=== PATIENT | female | born 1970 | race Caucasian/White ===

== ENCOUNTER 2019-05-09 05:40 | Inpatient (IN) | payer OTHER, SELFPAY ==
[2019-05-09] VITALS (11 sets, daily range): BP systolic 125–149; BP diastolic 72–96; PULSE 93–120; RESP 14–27; TEMP 36.9–38.1; O2SAT 95–100; BMI 40.0
--- NOTE | 2019-05-09 05:47 | ED_ITS ---
HPI - Ear Problem General Chief complaint: Skin/Abscess/Foreign Body Stated complaint: Swelling, redness right ear pain Time Seen by Provider: 05/09/19 05:46 Source: patient Mode of arrival: Ambulatory Limitations: no limitations History of Present Illness HPI Narrative: 49-year-old female former smoker presents with a chief complaint of a rapid onset red, painful and swollen right ear. She denies any injury. Sh e denies any history of immune compromise, diabetes a recent oral steroids. She states that she started having some pain and swelling of her ear after it felt hot yesterday. Over the course of the night she began to feel ill and complains of fever, shaking chills and nausea. Patient had a similar scenario 2 years ago which required admission at our review and subsequent administration of antibi otics over the course of 3 weeks through a PICC line. Her max temp at home was 101.5 MD Complaint: ear pain Location: right ear Duration: constant Severity: severe Relieving factors: nothing Exacerbating factors: position of head and palpation Discharge from ear: no Treatment prior to arrival: none Related Data Home Medications Medication Instructions Recorded Confirmed Probiotic 1 cap PO DAILY 05/09/19 05/09/19 cholecalciferol (vitamin D3) 5,000 unit PO DAILY 05/09/19 05/09/19 [Vitamin D3] dextroamphetamine-amphetamine 10 mg PO BID 05/09/19 05/09/19 estradiol [Estrace] 0 g VAGINAL DIRECTED 05/09/19 05/09/19 fluoxetine 10 mg PO DAILY 05/09/19 05/09/19 levothyroxine [Tirosint] 150 mcg PO DAILY 05/09/19 05/09/19 montelukast 10 mg PO QPM 05/09/19 05/09/19 triamcinolone acetonide 1 applic TOPICAL DIRECTED 05/09/19 05/09/19 Allergies Allergy/AdvReac Type Severity Reaction Status Date / Time lactose Allergy Verified 05/09/19 06:43 meloxicam [From Mobic] AdvReac Verified 05/09/19 06:43 Review of Systems Constitutional Constitutional: Reports chills, Denies fatigue, Reports fever(s), Denies frequent falls, Denies lethargy and Denies weakness Eyes Eyes: Denies change in vision, Denies eye discharge, Denies irritation and Denies loss of vision ENT Ears, Nose, Mouth, and Throat: Denies change in voice, Denies dizziness, Reports otalgia, Reports facial pain, Denies neck pain, Denies sore throat and Denies throat swelling Cardiovascular Cardiovascular: Denies chest pain, Denies irregular heart rhythm, Denies lightheadedness, Denies palpitations, Denies dyspnea, Denies dyspnea on exertion and Denies orthopnea Respiratory Respiratory: Denies cough, Denies dyspnea, Denies dyspnea on exertion and Denies wheezing Gastrointestinal Gastrointestinal: Denies abdominal pain, Denies change in bowel habits, Denies diarrhea, Denies nausea and Denies vomiting Genitourinary Genitourinary: Denies hematuria, Denies flank pain, Denies urinary incontinence and Denies urinary urgency Musculoskeletal Musculoskeletal: Denies back pain, Denies muscle weakness, Denies neck pain, Denies numbness and Denies tingling Integumentary/Breasts Skin/Breast: Denies pruritus, Denies erythema, Denies rash and Denies wounds Neurologic Neurologic: Denies behavioral changes, Denies confusion, Denies dizziness, Denies frequent falls, Denies loss of vision, Denies numbness, Denies tingling and Denies weakness Psychiatric Psychiatric: Denies anxiety, Denies behavioral changes, Denies confusion, Denies depression, Denies homicidal ideation and Denies suicidal ideation Endocrine Endocrine: Denies fatigue, Denies flushing and Denies palpitations Hematologic/Lymphatic Hematologic/Lymphatic: Denies easy bruising Allergic/Immunologic Allergic/Immunologic: Denies urticaria, Denies throat swelling and Denies wheezing Patient History Medical History (Updated 05/09/19 @ 13:30 by Dillon Shell MD) ADHD (Acute) Anxiety (Acute) Dairy product intolerance (Acute) Environmental allergies (Acute) Gluten intolerance (Acute) H/O Bharati thyroiditis (Acute) Hypothyroidism (acquired) (Acute) Family History (Updated 05/09/19 @ 13:22 by Dillon Shell MD) Father Lymphoma Mother Diabetes mellitus Hypertension CVA (cerebral vascular accident) Social History household members: spouse Smoking Status: Former smoker alcohol intake: never Family History (Updated 05/09/19 @ 13:22 by Dillon Shell MD) Father Lymphoma Mother Diabetes mellitus Hypertension CVA (cerebral vascular accident) Social History household members: spouse Smoking Status: Former smoker alcohol intake: never Exam Narrative Exam Narrative: GENERAL: [49] year old patient appears stated age. Well- nourished, well-developed patient, in mild distress. Ill appearing HEAD: Atraumatic. Normocephalic. EYES: Pupils equal round and reactive. Extraocular motions intact. No scleral icterus. No injection or drainage. ENT: Nose without bleeding, purulent drainage. Throat without erythema, tonsillar hypertrophy or exudate. Airway patent. R external ear notably swollen, red tender with associated lymphadenopathy. EAC appears clear without drainage. TM celar NECK: Trachea midline. Non tender CARDIOVASCULAR: Tachycardic rate and regular rhythm without murmurs, gallops, or rubs. RESPIRATORY: Clear to auscultation. Breath sounds equal bilaterally. No wheezes, rales, or rhonchi. GASTROINTESTINAL: Abdomen soft, non-tender, nondistended. EXTREMITIES: No edema or joint tenderness. BACK: Nontender without deformity or crepitance. No flank tenderness. NEURO: AOx3. SKIN: No rash or erythema of visible areas Initial Vital Signs Initial Vital Signs: Vital Signs Temperature 99.1 F 05/09/19 05:49 Pulse Rate 120 H 05/09/19 05:49 Respiratory Rate 19 05/09/19 05:49 Blood Pressure 149/96 H 05/09/19 05:49 Pulse Oximetry 97 05/09/19 05:49 Course Orders Ordered: Hydrocodone Bitart/Acetaminophen ([place] 5/325) 2 tab PO Q4HR PRN PRN Reason: Pain, Severe (7-10) Last Admin: 05/09/19 16:27 Dose: 2 tab Documented by: Admin: 05/09/19 11:48 Dose: 2 tab Documented by: MAULIK Docusate Sodium (Colace) 100 mg PO DAILY SALLY Enoxaparin Sodium (Lovenox) 40 mg SUBCUT BID SALLY Cefepime HCl 1 gm/ Sodium (Chloride) 100 mls @ 200 mls/hr IV Q12H SALLY Last Infusion: 05/09/19 14:22 Dose: 0 mls/hr Documented by: Admin: 05/09/19 13:35 Dose: 200 mls/hr Documented by: MAULIK Vancomycin HCl 1,250 mg/ (Sodium Chloride) 250 mls @ 250 mls/hr IV Q8H [facility] Last Admin: 05/09/19 14:22 Dose: 250 mls/hr Documented by: MAULIK Ketorolac Tromethamine (Toradol) 15 mg IV Q6HR [facility] Stop: 05/11/19 11:28 Last Admin: 05/09/19 18:07 Dose: 15 mg Documented by: Admin: 05/09/19 12:36 Dose: 15 mg Documented by: MAULIK Morphine Sulfate (Morphine) 2 mg IV Q4HR PRN PRN Reason: Pain, Moderate (4-6) Vancomycin HCl (Vancomycin Trough) 1 request MISC NOW ONE Stop: 05/10/19 06:01 Discontinued Medications Sodium Chloride (Normal Saline 0.9%) 1,000 mls @ 1,000 mls/hr IV BOLUS ONE Stop: 05/09/19 06:51 Last Infusion: 05/09/19 07:14 Dose: 0 mls/hr Documented by: Admin: 05/09/19 06:21 Dose: 1,000 mls/hr Documented by: JUWAN Sodium Chloride (Normal Saline 0.9%) 1,000 mls @ 1,000 mls/hr IV BOLUS ONE Stop: 05/09/19 07:10 Last Admin: 05/09/19 07:14 Dose: Not Given Documented by: JUWAN Vancomycin HCl/Dextrose (Vancomycin) 1,500 mg in 300 mls @ 200 mls/hr IV NOW ONE Stop: 05/09/19 07:42 Last Infusion: 05/09/19 08:17 Dose: 200 mls/hr Documented by: Admin: 05/09/19 06:32 Dose: 200 mls/hr Documented by: JUWAN Levofloxacin (Levaquin) 500 mg in 100 mls @ 100 mls/hr IV NOW ONE Stop: 05/09/19 07:18 Last Infusion: 05/09/19 07:32 Dose: 100 mls/hr Documented by: Admin: 05/09/19 06:32 Dose: 100 mls/hr Documented by: JUWAN Ketorolac Tromethamine (Toradol) 15 mg IV NOW ONE Stop: 05/09/19 07:17 Last Admin: 05/09/19 07:30 Dose: 15 mg Documented by: WM Vancomycin HCl (Vancomycin Per Pharmacy) 1 [place] [facility] [place] Stop: 05/09/19 11:29 Last Admin: 05/09/19 15:22 Dose: Not Given Documented by: JAYLENFARL Consultations Consultation #1: discussion with ENT. Admission appropriate, vanco/levaquin. Will relay info to day ENT Consultation #2: call to hospitalist, she will relay findings to day hospitalist Vital Signs Vital signs: Vital Signs - 8 hr 05/09/19 05:49 05/09/19 06:51 Temperature 99.1 F 98.6 F Pulse Rate 120 H 103 H Respiratory Rate 19 27 H Blood Pressure 149/96 H Blood Pressure [Right Arm] 133/79 Pulse Oximetry 97 97 Medical Decision Making Lab Data Result diagrams: 05/09/19 06:05 05/09/19 06:05 Labs: Lab Results 05/09/19 05/09/19 05/09/19 Range/Units 06:05 06:05 06:05 WBC 14.0 H (4.5-11.0) X10^3/uL RBC 4.28 (4.0-5.2) X10^6/uL Hgb 13.3 (12.0-16.0) g/dL Hct 39.4 (36-46) % MCV 91.9 (80-100) fL MCH 31.1 (26-34) PG MCHC 33.9 (30-36) % RDW 13.1 (11.6-14.8) % Plt Count 232 (150-400) X10^3/uL Neut % (Auto) 89.9 H (50-75) % Lymph % (Auto) 5.3 L (25-40) % [place] % (Auto) 4.5 (3-14) % Eos % (Auto) 0.2 L (2-4) % Baso % (Auto) 0.1 (0-2) % Neut # (Auto) 60405 H (4219-2894) /uL Lymph # (Auto) 700 L (3186-2258) /uL [place] # (Auto) 600 (0-900) /uL Eos # (Auto) 0 (0-450) /uL Baso # (Auto) 0 (0-100) /uL PT 11.4 (10.1-12.7) SECONDS INR 1.0 (0.9-1.3) APTT 28 (26.4-36.2) SECONDS Sodium (137-145) mmol/L Potassium (3.4-5.1) mmol/L Chloride (98-107) mmol/L Carbon Dioxide (22-32) mmol/L BUN (7-17) mg/dL Creatinine (0.52-1.04) mg/dL Estimated GFR (>60) mL/min BUN/Creatinine Ratio (6-22) Glucose (70-100) mg/dL Lactate (0.7-2.1) mmol/L Calcium (8.4-10.2) mg/dL Total Bilirubin (0.2-1.3) mg/dL AST (14-36) IU/L ALT (9-52) IU/L Alkaline Phosphatase (38-126) U/L Total Protein (6.3-8.2) g/dL Albumin (3.5-5.0) g/dL Globulin (1.7-4.1) g/dL Albumin/Globulin Ratio (1.0-2.8) Lipase (23-300) U/L Procalcitonin < 0.05 (<0.5) ng/mL Urine RBC (0-5/HPF) Urine WBC (0-5/HPF) Ur Squamous Epith Cells (0-5/HPF) Urine Bacteria (None) Ur Culture Indicated? 05/09/19 05/09/19 05/09/19 Range/Units 06:05 06:05 07:18 WBC (4.5-11.0) X10^3/uL RBC (4.0-5.2) X10^6/uL Hgb (12.0-16.0) g/dL Hct (36-46) % MCV (80-100) fL MCH (26-34) PG MCHC (30-36) % RDW (11.6-14.8) % Plt Count (150-400) X10^3/uL Neut % (Auto) (50-75) % Lymph % (Auto) (25-40) % [place] % (Auto) (3-14) % Eos % (Auto) (2-4) % Baso % (Auto) (0-2) % Neut # (Auto) (5474-0086) /uL Lymph # (Auto) (0908-4985) /uL [place] # (Auto) (0-900) /uL Eos # (Auto) (0-450) /uL Baso # (Auto) (0-100) /uL PT (10.1-12.7) SECONDS INR (0.9-1.3) APTT (26.4-36.2) SECONDS Sodium 137 (137-145) mmol/L Potassium 4.0 (3.4-5.1) mmol/L Chloride 104 (98-107) mmol/L Carbon Dioxide 23 (22-32) mmol/L BUN 16 (7-17) mg/dL Creatinine 0.60 (0.52-1.04) mg/dL Estimated GFR > 60.0 (>60) mL/min BUN/Creatinine Ratio 26.7 H (6-22) Glucose 121 H (70-100) mg/dL Lactate 1.8 (0.7-2.1) mmol/L Calcium 9.6 (8.4-10.2) mg/dL Total Bilirubin 1.2 (0.2-1.3) mg/dL AST 43 H (14-36) IU/L ALT 45 (9-52) IU/L Alkaline Phosphatase 56 (38-126) U/L Total Protein 7.9 (6.3-8.2) g/dL Albumin 4.4 (3.5-5.0) g/dL Globulin 3.5 (1.7-4.1) g/dL Albumin/Globulin Ratio 1.3 (1.0-2.8) Lipase 28 (23-300) U/L Procalcitonin (<0.5) ng/mL Urine RBC 0-1/hpf (0-5/HPF) Urine WBC 0-1/hpf (0-5/HPF) Ur Squamous Epith Cells 1-5 /hpf (0-5/HPF) Urine Bacteria Occasional (0-1) (None) Ur Culture Indicated? Specimen cultured Urine Dip Bedside Urine Glucose Negative Bedside Urine Bilirubin - Negative Bedside Urine Ketone - Negative Urine Specific [place] 1.005 Bedside Urine Occult Blood - Negative Bedside Urine pH 7.0 Bedside Urine Protein - Negative Bedside Urine Urobilinogen - Negative Bedside Urine Nitrite - Negative Bedside Urine Leukocytes +/- 15 Esterase Point of care testing: Urine Dip Bedside Urine Glucose Negative Bedside Urine Bilirubin - Negative Bedside Urine Ketone - Negative Urine Specific [place] 1.005 Bedside Urine Occult Blood - Negative Bedside Urine pH 7.0 Bedside Urine Protein - Negative Bedside Urine Urobilinogen - Negative Bedside Urine Nitrite - Negative Bedside Urine Leukocytes +/- 15 Esterase MDM Narrative Medical decision making narrative: 49F with rapid onset cellulitis, fever, rapid HR, chills, nausea with complicated history in the past. I've spoken with ENT and they will be available for consult and are in agreement with ABX selection. Discharge Plan Departure Patient Disposition: Admitted As Inpatient Clinical Impression: Cellulitis of auricle of ear Qualifiers: Laterality: right Qualified Code(s): H60.11 - Cellulitis of right external ear Discharge Date/Time: 05/09/19 09:30 Admit Date/Time: 05/09/19 07:58 Admit Provider: Dillon Shell
--- NOTE | 2019-05-09 05:52 | DI.RAD.S_ITS ---
PROCEDURE: XR CHEST 1V INDICATIONS: suspected sepsis TECHNIQUE: One view of the chest was acquired. COMPARISON: None. FINDINGS: Surgical changes and devices: None. Lungs and pleura: Lungs are clear. No pleural effusions or pneumothorax. Mediastinum: Mediastinal contours appear normal. Heart size is normal. Bones and chest wall: No suspicious bony lesions. Overlying soft tissues appear unremarkable. IMPRESSION: No acute pulmonary process. Dictated by: Delisa Doty M.D. on 05/09/2019 at 11:39 Approved by: Delisa Doty M.D. on 05/09/2019 at 11:40
[2019-05-09 06:20] LABS: Add Manual Diff / Slide Review NO; Basophils Absolute Auto 0 /uL (0-100); Basophils Percent Auto 0.1 % (0-2); Eosinophils Absolute Auto 0 /uL (0-450); Eosinophils Percent Auto 0.2 % (2-4); Hematocrit 39.4 % (36-46); Hemoglobin 13.3 g/dL (12.0-16.0); Lymphocytes Absolute Auto 700 /uL (1100-4500); Lymphocytes Percent Auto 5.3 % (25-40); Mean Corpuscular HGB Conc 33.9 % (30-36); Mean Corpuscular Hemoglobin 31.1 PG (26-34); Mean Corpuscular Volume 91.9 fL (80-100); Monocytes Absolute Auto 600 /uL (0-900); Monocytes Percent Auto 4.5 % (3-14); Neutrophils Absolute Auto 12600 /uL (1500-7000); Neutrophils Percent Auto 89.9 % (50-75); Platelet Count 232 X10^3/uL (150-400); Red Blood Cell Count 4.28 X10^6/uL (4.0-5.2); Red Cell Distribution Width 13.1 % (11.6-14.8)
[2019-05-09] MEDS: SODIUM CHLORIDE 0.9% 1,000 ML 1000 ML IV (06:21)
[2019-05-09 06:30] LABS: Alanine Aminotransferase 45 IU/L (9-52); Albumin 4.4 g/dL (3.5-5.0); Albumin Globulin Ratio 1.3 (1.0-2.8); Alkaline Phosphatase 56 U/L (38-126); Aspartate Aminotransferase 43 IU/L (14-36); BUN Creatinine Ratio 26.7 (6-22); Bilirubin Total 1.2 mg/dL (0.2-1.3); Blood Urea Nitrogen 16 mg/dL (7-17); Calcium 9.6 mg/dL (8.4-10.2); Carbon Dioxide 23 mmol/L (22-32); Chloride 104 mmol/L (98-107); Estimated Glomerular Filt Rate > 60.0 mL/min (>60); Globulin 3.5 g/dL (1.7-4.1); Glucose 121 mg/dL (70-100); HEMOLYSIS < 15 (0-50); Lipase 28 U/L (23-300); Sodium 137 mmol/L (137-145); Total Protein 7.9 g/dL (6.3-8.2)
[2019-05-09 06:31] LABS: Lactate (Lactic Acid) 1.8 mmol/L (0.7-2.1)
[2019-05-09] MEDS: levoFLOXacin 500 MG/100 ML PIGGYBACK 100 MG IV (06:32)
[2019-05-09] MEDS: VANCOMYCIN 1,500 MG/300 ML FROZ.PIGGY 200 MG IV (06:32)
[2019-05-09 06:40] LABS: PTT Partial Thromboplastin Tim 28 SECONDS (26.4-36.2); Prothrombin Time 11.4 SECONDS (10.1-12.7)
[2019-05-09 06:51] LABS: Procalcitonin < 0.05 ng/mL (<0.5)
[2019-05-09] MEDS: KETOROLAC 60 MG/2 ML VIAL 15 MG IV (07:30)
[2019-05-09 07:44] LABS: Bacteria Urine Occasional (0-1); Culture Indicated Urine Specimen Cultured; RBC Urine 0-1/HPF (0-5/HPF); Squamous Epithelial Cell Urine 1-5 /HPF (0-5/HPF); WBC Urine 0-1/HPF (0-5/HPF)
--- NOTE | 2019-05-09 11:35 | P.HP_ITS ---
History of Present Illness History of Present Illness Date Patient Seen: 05/09/19 Time Patient Seen: 11:37 Chief complaint: Swelling, redness right ear pain Narrative: This is a 61-year-old female who presents with 24 hours of right ear symptoms. Yesterday afternoon she noticed tenderness on the top of the right ear and then rapidly overnight gained swelling/pain/redness. Over night she also developed a fever up to 101.2. In 2016 she had a matching left-sided ear infection that was treated at [facility], eventually with 3 weeks of IV antibiotics to clear, finally using cefepime and vancomycin after failing a course of Levaquin. There have also been chills and sweating. She shows me a picture of the infection from 2016, which looked like it had spread much further to the face around the ear than it has so far this time. There has been no infection of the neck, mouth or elsewhere on the face. She has had no trauma to the ear, no insect bite or sting etc. Patient History Medical History (Updated 05/09/19 @ 13:30 by Dillon Shell MD) ADHD (Acute) Anxiety (Acute) Dairy product intolerance (Acute) Environmental allergies (Acute) Gluten intolerance (Acute) H/O Bharati thyroiditis (Acute) Hypothyroidism (acquired) (Acute) Family History (Updated 05/09/19 @ 13:22 by Dillon Shell MD) Father Lymphoma Mother Diabetes mellitus Hypertension CVA (cerebral vascular accident) Social History Smoking Status: Former smoker Family & Social History Family History (Updated 05/09/19 @ 13:22 by Dillon Shell MD) Father Lymphoma Mother Diabetes mellitus Hypertension CVA (cerebral vascular accident) Social History: Her backup decision maker is her Martin Her. 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 Safety & Behavioral: Feels Safe in Current Yes Environment Tobacco & Substance use: Smoking Status Former smoker Meds Home Medications and Allergies Home Medications Medication Instructions Recorded Confirmed Type Probiotic 1 cap PO DAILY 05/09/19 05/09/19 History cholecalciferol (vitamin D3) 5,000 unit PO DAILY 05/09/19 05/09/19 History [Vitamin D3] dextroamphetamine-amphetamine 10 mg PO BID 05/09/19 05/09/19 History estradiol [Estrace] 0 g VAGINAL DIRECTED 05/09/19 05/09/19 History fluoxetine 10 mg PO DAILY 05/09/19 05/09/19 History levothyroxine [Tirosint] 150 mcg PO DAILY 05/09/19 05/09/19 History montelukast 10 mg PO QPM 05/09/19 05/09/19 History triamcinolone acetonide 1 applic TOPICAL DIRECTED 05/09/19 05/09/19 History Allergies Allergy/AdvReac Type Severity Reaction Status Date / Time lactose Allergy Verified 05/09/19 06:43 meloxicam [From Mobic] AdvReac Verified 05/09/19 06:43 Review of Systems Review of Systems Narrative: Positive for ear pain, fevers, chills, sweating. Negative for co ughing, nausea, vomiting, diarrhea, bleeding, rash, chest pain, abdominal pain, new allergies, difficulty walking, headaches, seizures, trouble swallowing. Exam Vital Signs (past 8 hours): - 05/09/19 05:49 05/09/19 06:51 05/09/19 07:51 Temperature 99.1 F 98.6 F Pulse Rate 120 H 103 H 103 H Respiratory Rate 19 27 H 25 H Blood Pressure 149/96 H Blood Pressure [Right Arm] 133/79 127/77 Pulse Oximetry 97 97 96 05/09/19 09:00 05/09/19 09:40 Temperature 98.8 F Pulse Rate 98 H 93 H Respiratory Rate 16 14 Blood Pressure 135/89 Blood Pressure [Right Arm] 135/80 Pulse Oximetry 98 99 Oxygen Delivery Method Room Air Oxygen Flow Rate 0 Narrative Exam Narrative: Alert and oriented x3. No apparent distress. Pupils are equally round and reactive to light and accommodation. Extraocular muscles are intact. Sclerae are pink and nonicteric. New lymph nodes are felt head, neck, supraclavicular area except for an area of swelling just underneath the right ear. There is no thyromegaly. No carotid bruits are heard. JVD is less 6 cm. Heart is regular rate and rhythm without murmur. Lungs are clear to auscultation bilaterally. Abdomen is soft, bowel sounds positive, nontender, no organomegaly. Extremities have no ankle edema. Neuro exam cranial nerves 2-12 tested intact. There is no tremor. Motor function is 5/5 throughout. Skin there is no rash except for the diffusely swollen and red right ear with an area about 2 cm wide, inferior to the ear also pink. A line is placed. The ear canal and tympanic membrane was examined in the emergency department and reported as normal. Objective Labs Result Diagrams: 05/09/19 06:05 05/09/19 06:05 Labs: Laboratory Results - last 24 hr 05/09/19 05/09/19 05/09/19 06:05 06:05 06:05 WBC 14.0 H RBC 4.28 Hgb 13.3 Hct 39.4 MCV 91.9 MCH 31.1 MCHC 33.9 RDW 13.1 Plt Count 232 Neut % (Auto) 89.9 H Lymph % (Auto) 5.3 L [place] % (Auto) 4.5 Eos % (Auto) 0.2 L Baso % (Auto) 0.1 Neut # (Auto) 91150 H Lymph # (Auto) 700 L [place] # (Auto) 600 Eos # (Auto) 0 Baso # (Auto) 0 PT 11.4 INR 1.0 APTT 28 Sodium Potassium Chloride Carbon Dioxide BUN Creatinine Estimated GFR BUN/Creatinine Ratio Glucose Lactate Calcium Total Bilirubin AST ALT Alkaline Phosphatase Total Protein Albumin Globulin Albumin/Globulin Ratio Lipase Procalcitonin < 0.05 Urine RBC Urine WBC Ur Squamous Epith Cells Urine Bacteria Ur Culture Indicated? 05/09/19 05/09/19 05/09/19 06:05 06:05 07:18 WBC RBC Hgb Hct MCV MCH MCHC RDW Plt Count Neut % (Auto) Lymph % (Auto) [place] % (Auto) Eos % (Auto) Baso % (Auto) Neut # (Auto) Lymph # (Auto) [place] # (Auto) Eos # (Auto) Baso # (Auto) PT INR APTT Sodium 137 Potassium 4.0 Chloride 104 Carbon Dioxide 23 BUN 16 Creatinine 0.60 Estimated GFR > 60.0 BUN/Creatinine Ratio 26.7 H Glucose 121 H Lactate 1.8 Calcium 9.6 Total Bilirubin 1.2 AST 43 H ALT 45 Alkaline Phosphatase 56 Total Protein 7.9 Albumin 4.4 Globulin 3.5 Albumin/Globulin Ratio 1.3 Lipase 28 Procalcitonin Urine RBC 0-1/hpf Urine WBC 0-1/hpf Ur Squamous Epith Cells 1-5 /hpf Urine Bacteria Occasional (0-1) Ur Culture Indicated? Specimen cultured Assessment & Plan Assessment and plan (1) Anxiety: Problem details: Continue Fluoxetine. Current visit: Yes Status: Acute Assessment & Plan narrative: Right ear auricularitis/neck cellulitis -will cover for potential gram-positive and gram-negative organisms with cefepime and vancomycin. This was successful with her previous episode. During the last episode she required 3 weeks of IV antibiotics. Hopefully we are catching this sooner and she will be able to be transitioned off antibiotics in a shorter duration. For the pain she will be given Toradol and hydrocodone. -recheck the CBC and the BMP tomorrow Bharati's hypothyroidism -continue levothyroxine Chronic anxiety -continue fluoxetine Environmental allergies -continue Singulair ADHD -continue Adderall
[2019-05-09] MEDS: HYDROCODONE/ACET 5/325 TABLET 2 TAB PO ×3 (11:48→22:28)
[2019-05-09] MEDS: KETOROLAC 30 MG/ML VIAL 15 MG IV ×3 (12:36→23:44)
[2019-05-09] MEDS: CEFEPIME 1 GM in SODIUM CHLORIDE 0.9% 100 ML 200 ML IV ×2 (13:35→23:43)
[2019-05-09] MEDS: VANCOMYCIN 1,250 MG in SODIUM CHLORIDE 0.9% 250 ML IV ×2 (14:22→22:23)
[2019-05-10] VITALS (9 sets, daily range): BP systolic 107–136; BP diastolic 67–93; PULSE 87–99; RESP 16–20; TEMP 36.8–37.2; O2SAT 94–98
[2019-05-10] MEDS: DOCUSATE 100 MG CAPSULE PO (06:13)
[2019-05-10] MEDS: KETOROLAC 30 MG/ML VIAL 15 MG IV ×2 (06:13→11:24)
--- NOTE | 2019-05-10 06:33 | PC.NURSE ---
Pt's right ear and right side of face had increase in swelling overnight. [facility] a[facility] was called and notified, she ordered a Lactic Acid to be added to labs. Pt reports pain in that ear, relieved with Toradol. She reports she can still hear, but sounds are a bit muffled. Vanco trough to be drawn this morning as well. Temp of 100.6F overnight, then down to 98.9F
[2019-05-10 06:39] LABS: Add Manual Diff / Slide Review NO; Basophils Absolute Auto 100 /uL (0-100); Basophils Percent Auto 0.5 % (0-2); Eosinophils Absolute Auto 0 /uL (0-450); Eosinophils Percent Auto 0.1 % (2-4); Hematocrit 36.8 % (36-46); Hemoglobin 12.5 g/dL (12.0-16.0); Lymphocytes Absolute Auto 900 /uL (1100-4500); Lymphocytes Percent Auto 7.4 % (25-40); Mean Corpuscular HGB Conc 34.1 % (30-36); Mean Corpuscular Hemoglobin 31.1 PG (26-34); Mean Corpuscular Volume 91.3 fL (80-100); Monocytes Absolute Auto 600 /uL (0-900); Monocytes Percent Auto 5.1 % (3-14); Neutrophils Absolute Auto 10400 /uL (1500-7000); Neutrophils Percent Auto 86.9 % (50-75); Platelet Count 198 X10^3/uL (150-400); Red Blood Cell Count 4.03 X10^6/uL (4.0-5.2); White Blood Cell Count 11.9 X10^3/uL (4.5-11.0)
[2019-05-10 07:00] LABS: Vancomycin Trough 6.6 ug/mL (10-20)
[2019-05-10] MEDS: VANCOMYCIN 2,000 MG/400 ML PIGGYBACK 200 MG IV ×2 (07:23→16:19)
[2019-05-10] MEDS: VANCOMYCIN TROUGH 1 REQUEST MISC (07:24)
[2019-05-10] MEDS: FLUoxetine 10 MG CAPSULE PO (09:38)
[2019-05-10] MEDS: LEVOTHYROXINE 150 MCG TABLET PO (09:38)
[2019-05-10] MEDS: ENOXAPARIN 40 MG/0.4 ML SYRINGE SUBCUT ×2 (09:38→21:00)
[2019-05-10] MEDS: CHOLECALCIFEROL (VITAMIN D3) 5,000 UNIT TABLET 5000 UNIT PO (09:38)
[2019-05-10] MEDS: LACTOBACILLUS ACIDOPHILUS TABLET 1 EACH PO (09:38)
[2019-05-10] MEDS: HYDROCODONE/ACET 5/325 TABLET 2 TAB PO ×2 (09:46→23:20)
[2019-05-10] MEDS: CEFEPIME 1 GM in SODIUM CHLORIDE 0.9% 100 ML 125 ML IV (11:00)
--- NOTE | 2019-05-10 11:25 | P.PN_ITS ---
Subjective Subjective Date Patient Seen: 05/10/19 Time Patient Seen: 11:25 Interval history: She is seen today to follow-up her right ear infection. The pink discoloration around the ear has extended somewhat, now involving some of the preauricular skin and extending a few mm below the line drawn inferior to the ear. At the same time the lymph node swelling below the right ear has diminished and the swelling of the upper part of the ear has diminished. Her pa in is somewhat better and she is in a very positive mood. Lactic acid level dropped from 1.8-1.0. Vancomycin trough 6.6. White blood count is 11.9. T-max is 100.6?. Vital signs are stable. Exam Vital Signs (past 8 hours): - 05/10/19 04:37 05/10/19 08:00 05/10/19 08:15 Temperature 98.9 F 98.7 F Pulse Rate 93 H 99 H Respiratory Rate 16 20 Blood Pressure 107/75 129/77 Pulse Oximetry 97 97 97 Oxygen Delivery Method Room Air Oxygen Flow Rate 0 Narrative Exam Narrative: She is alert and oriented x3. She continues to have significant pain/distress in the right ear but is in a positive mood because this has improved. Heart is regular rate and rhythm without murmur. There is no longer any distinctive lymph node swelling below the right ear. The pinkness of the skin has extended a few mm below the line drawn yesterday and has extended to involve about half a cm of the preauricular skin, also new from yesterday. The swelling of the upper part of the ear has improved. The ear is still quite red. Objective Labs Result Diagrams: 05/10/19 06:20 05/09/19 06:05 Labs: Laboratory Results - last 24 hr 05/10/19 05/10/19 05/10/19 06:20 06:20 06:20 WBC 11.9 H RBC 4.03 Hgb 12.5 Hct 36.8 MCV 91.3 MCH 31.1 MCHC 34.1 RDW 13.0 Plt Count 198 Neut % (Auto) 86.9 H Lymph % (Auto) 7.4 L [place] % (Auto) 5.1 Eos % (Auto) 0.1 L Baso % (Auto) 0.5 Neut # (Auto) 49804 H Lymph # (Auto) 900 L [place] # (Auto) 600 Eos # (Auto) 0 Baso # (Auto) 100 Lactate 1.0 Vancomycin Trough 6.6 L Assessment & Plan Assessment & Plan narrative: Right ear auricularitis/neck cellulitis -Continue cefepime and vancomycin. This was successful with her previous episode. With the last episode she required 3 weeks of IV antibiotics. Hopefully we are catching this sooner and she will be able to be transitioned off antibiotics in a shorter duration. For the pain she will continue with Toradol and hydrocodone. -Duration of IV treatment and location of treatment (here or at home) will be determined once there is a sustained response to confirm effectiveness. At a minimum I expect 7 days of IV Cefepime. This is not classic Malignant Otitis Externa but is being treated similarly. A midline will be placed on 05/10 due to pain with Vanco peripheral infusion. Bharati's hypothyroidism -continue levothyroxine Chronic anxiety -continue fluoxetine Environmental allergies -continue Singulair ADHD -continue Adderall
--- NOTE | 2019-05-10 12:57 | CM.DANOTE ---
Discharge Planning/Care Management DCP: assessment: case received, EMR reviewed and met with pt. Introduced self and role. Pt is noted to be up independently in room. Her R ear markedly swollen and red. Pt is a 49 year old female who admitted to care of hospitalist team ysterday. Payer: [place] PCP:Jassi Ulloa/[facility]. Admission status: INPT: confirmed by UR RENE De Los Santos. Pt confirms that she had a similar infection in L ear in 2016. Was treated at [facility] and eventually discharged to home setting with an infusion company. She noted at the time she had asked for [facility] but that [facility] said they only knew about [facility] and thus referral went to them. She would like to see if [facility] could see her, as long as they take her insurance I like that they are a more local company. Referral now given verbally to television specialist pharmacist with [facility]. She says they do take [employer] and requests fax of clinicals but says that nothing further can be done as regards to getting an authorization as is not available over weekend. She says all will be worked on Sunday morning (05/12). At this point Dr. Shell has planned for pt to continue getting the 2 antibiotics that she was given for prior infection in the hospital setting and that she will likely need an extended course but not 3 weeks. IF these will need to be continued in home setting (likely at this point) pt says she is very comfortable with that process. She also says that Sonya Ulloa was her PCP in 2016 and managed the home IV treatment so I am very comfortable if I need to go through that process again. CM Discharge Assessment Start: 05/10/19 12:56 Freq: Status: Active Protocol: Document 05/10/19 12:56 ITV (Rec: 05/10/19 12:57 ITV [id number]) Discharge Planning Assessment Advance Directives? No History Provided By Patient,Medical Record Prior Living Arrangements House Household Members spouse Independent with ADL's Yes Is patient alert and oriented? Yes Whiteboard Updated in Patient Room with Yes name and ext. # of Turn Down Man Review Status In Process
--- NOTE | 2019-05-10 13:08 | PC.NURSE ---
Day shift: Pt mostly comfortable today getting pain meds per MAR. IV in rt FA is tender and Pt did c/o some mild pain in that IV site. Dr Wilkinson was asked if midline could bwe ordered as the Pt is to have IV antibiotics for approx 5 days more. ok with that and midline person to be here around 1430 today. Rt ear remains swollen with some small blisters present. Pictures taken w/ AC camera and it is in Ginger's box to be printed and placed in chart when she is here on Sunday. Spouse in room for support. Call light in reach. Pt is SL at this time and steady on feet. Low fall risk. Calls proper.
--- NOTE | 2019-05-10 13:47 | PC.NURSE ---
Day shift: Pt in shower at this time. ANIRUDH Herr wrapped her IV ip. Pt requested to take a shower today.
[2019-05-10] MEDS: HYDROCODONE/ACET 5/325 TABLET 1 TAB PO (14:05)
--- NOTE | 2019-05-10 14:50 | PC.NURSE ---
Day shift: Midline person is here and consent form was signed ([id number]).
[2019-05-10] MEDS: MONTELUKAST 10 MG TABLET PO (16:51)
[2019-05-10] MEDS: predniSONE 20 MG TABLET 40 MG PO (16:51)
--- NOTE | 2019-05-10 18:04 | PC.NURSE ---
Addendum entered by Lizzy Cunningham R.N. 05/10/19 22:29: Pt condition remains essentially unchanged. Right ear remains red. CHRISTIANE PICC intact/patent. Up ad shruti in room and hallways. Call light w/in reach, pt calls appropriately for needs Continue w/alyssa of care. Original Note: Pt up ad shruti in room. Denies discomfort. Right ear and side of face red, swollen/tender. CHRISTIANE PICC intact/patent. Denies any requests at this time. Call light w/in reach.
[2019-05-10] MEDS: KETOROLAC 15 MG/ML VIAL IV (21:07)
[2019-05-10] MEDS: CEFEPIME 1 GM in SODIUM CHLORIDE 0.9% 100 ML 200 ML IV (23:18)
[2019-05-11] VITALS (7 sets, daily range): BP systolic 119–147; BP diastolic 79–87; PULSE 76–93; RESP 16–20; TEMP 36.4–36.9; O2SAT 95–98
[2019-05-11] MEDS: VANCOMYCIN 2,000 MG/400 ML PIGGYBACK 200 MG IV ×4 (00:14→22:35)
[2019-05-11] MEDS: KETOROLAC 15 MG/ML VIAL IV ×4 (04:08→21:19)
[2019-05-11] MEDS: DOCUSATE 100 MG CAPSULE PO (06:49)
[2019-05-11] MEDS: LEVOTHYROXINE 150 MCG TABLET PO (06:49)
[2019-05-11 07:28] LABS: Vancomycin Trough 15.3 ug/mL (10-20)
[2019-05-11] MEDS: VANCOMYCIN TROUGH 1 REQUEST MISC (07:49)
[2019-05-11] MEDS: CHOLECALCIFEROL (VITAMIN D3) 5,000 UNIT TABLET 5000 UNIT PO (08:47)
[2019-05-11] MEDS: LACTOBACILLUS ACIDOPHILUS TABLET 1 EACH PO (08:48)
[2019-05-11] MEDS: FLUoxetine 10 MG CAPSULE PO (08:48)
[2019-05-11] MEDS: ENOXAPARIN 40 MG/0.4 ML SYRINGE SUBCUT ×2 (08:51→20:02)
[2019-05-11] MEDS: predniSONE 20 MG TABLET 40 MG PO (08:52)
[2019-05-11] MEDS: HYDROCODONE/ACET 5/325 TABLET 1 TAB PO (10:11)
[2019-05-11] MEDS: CEFEPIME 1 GM in SODIUM CHLORIDE 0.9% 100 ML 200 ML IV ×2 (10:30→20:20)
[2019-05-11] MEDS: LIDOCAINE JELLY 2% 5 ML 1 APPLIC TOP ×4 (11:17→16:06)
--- NOTE | 2019-05-11 11:52 | PC.NURSE ---
Day shift: Lidocaine gel per SEP PRN is working well to help with rt ear discomfort.
--- NOTE | 2019-05-11 12:12 | PM.PN.1 ---
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 There has also been some concern about a critically low vitamin-D level. I was contacted by her OBGYN, Dr. Cortes from [place], yesterday about a vitamin-D level of 3. I reviewed that level both on the faxed report and with the landscaping and groundskeeping laborer at the [facility] both confirming that the level was 30 which is normal. I also reviewed her documentation from [facility], several years ago, when she had the other ear infected. At that time they also considered relapsing polychondritis but discounted that, on rheumatology and dermatology consult. She was started on prednisone yesterday in case that is contributing. She is doing much better today. It is unclear whether the antibiotics simply started working today or whether the prednisone made the difference? Exam Vital Signs (past 8 hours): - 05/11/19 07:54 05/11/19 08:35 05/11/19 11:23 Temperature 98.4 F 97.9 F Pulse Rate 93 H 86 Respiratory Rate 19 18 Blood Pressure 147/85 H 119/87 Pulse Oximetry 95 98 97 Oxygen Delivery Method Room Air Oxygen Flow Rate 0 Narrative Exam Narrative: She is alert and oriented x3. She is in no apparent distress Heart is regular rate and rhythm without murmur. In the neck there are no lymph nodes on the right side where there had been quite a bit of swelling before. The ear redness has turned in several locations into a yellowish color. There is definitely decreased swelling and redness around the ear and even the lower aspect of the year where most of the involvement had been. Objective Labs Result Diagrams: 05/10/19 06:20 05/09/19 06:05 Labs: Laboratory Results - last 24 hr 05/11/19 06:50 Vancomycin Trough 15.3 Assessment & Plan Assessment & Plan narrative: Right ear auriculitis/neck cellulitis -Continue cefepime and vancomycin. This was successful with her previous episode. With the last episode she required 3 weeks of IV antibiotics. The swelling and redness are definitely receding. The pain continues to be improved. -Plan to extend duration of 7 more days of IV Cefepime/Vancomycin at discharge, most likely tomorrow. This is not classic Malignant Otitis Externa but is being treated similarly. This is also not classic polychondritis but she has begun to improve faster after the prednisone was started yesterday. [facility] will provide her antibiotics beginning tomorrow at planned discharge. Discharge is contingent on continued improvement. Bharati's hypothyroidism -continue levothyroxine Chronic anxiety -continue fluoxetine Environmental allergies -continue Singulair ADHD -continue Adderall
--- NOTE | 2019-05-11 16:19 | PC.NURSE ---
Addendum entered by Lizzy Cuninngham R.N. 05/11/19 21:19: Pt up ad shruti, denies much discomfort. CHRISTIANE PICC intact/patent. Uneventful evening. Pt hopeful to D/C in am. Call light w/in reach, pt calls appropriately for needs. Continue w/plan of care. Original Note: Pt up ad shruti in room and hallway. Denies discomfort at that his time. SpO2 95% RA Right ear remains reddened/swollen at lobe Pt requests lidocaine to ear lobe. CHRISTIANE PICC intact/patent. Call light w/in reach. Pt calls appropriately for needs.
[2019-05-11] MEDS: MONTELUKAST 10 MG TABLET PO (19:47)
[2019-05-12] VITALS (8 sets, daily range): BP systolic 108–140; BP diastolic 55–98; PULSE 65–78; RESP 16; TEMP 36.4–36.8; O2SAT 96–100
[2019-05-12] MEDS: HYDROCODONE/ACET 5/325 TABLET 2 TAB PO
[2019-05-12] MEDS: LIDOCAINE JELLY 2% 5 ML 1 APPLIC TOP ×3 (00:50→10:18)
[2019-05-12] MEDS: DOCUSATE 100 MG CAPSULE PO (06:26)
[2019-05-12] MEDS: VANCOMYCIN 2,000 MG/400 ML PIGGYBACK 200 MG IV ×2 (06:26→14:05)
[2019-05-12] MEDS: LEVOTHYROXINE 150 MCG TABLET PO (06:26)
[2019-05-12] MEDS: LACTOBACILLUS ACIDOPHILUS TABLET 1 EACH PO (08:42)
[2019-05-12] MEDS: CHOLECALCIFEROL (VITAMIN D3) 5,000 UNIT TABLET 5000 UNIT PO (08:43)
[2019-05-12] MEDS: predniSONE 20 MG TABLET 40 MG PO (08:43)
[2019-05-12] MEDS: FLUoxetine 10 MG CAPSULE PO (08:43)
[2019-05-12] MEDS: ENOXAPARIN 40 MG/0.4 ML SYRINGE SUBCUT (08:45)
[2019-05-12] MEDS: KETOROLAC 15 MG/ML VIAL IV ×2 (08:48→14:03)
[2019-05-12] MEDS: ACETAMINOPHEN 325 MG TABLET 650 MG PO (10:18)
[2019-05-12] MEDS: CEFEPIME 1 GM in SODIUM CHLORIDE 0.9% 100 ML 200 ML IV (10:48)
[2019-05-12] MEDS: LORazepam 0.5 MG TABLET PO (13:14)
[2019-05-12] MEDS: HYDROCODONE/ACET 5/325 TABLET 1 TAB PO (13:15)
--- NOTE | 2019-05-12 14:05 | PC.NURSE ---
Day shift: Pt to d/c today. Gave IV Vanco early to help with Pt leaving earlier. Ok's with Kyaw in pharmacy and Pt is ok with this as well.
--- NOTE | 2019-05-12 15:11 | CM.DPC ---
Addendum entered by Sabine Sánchez R.N. 05/12/19 16:12: Spoke to Tena at [facility], have not yet had prescriptions filled out for ABO infusion. Gave her his cell number so pharmacist can take verbal order. For now, faxed med list, not signed. [facility] is supposed to be here to see patient. Patient is aware. She should be able to go home once meds are in place. Original Note: DCP Cont: [facility] was originally going to come to the hospital to do some teaching for discharge today. Patient is to be on two different antibiotics, Vancomycin, and Cefepizime. Janak at [facility] stated that they can't do Vancomycin through a midline, due to medication infiltration. Patient would need a PICC line. Went ahead and had Ramona, hospital supervisor, contact [facility]. Faxed them over information, as well as insurance. They reviewed, and stated that they can do Vanco midline. They are requesting prescriptions for Vanco and Cefepizime. Will have hospitalist fill out prescriptions, and will fax to [facility]. Needs a vanco trough, which we have, and will send over as well. [facility] nurse will be here between [id number], for some teaching. P: Patient should be discharging home today. Will obtain signed rx from hospitalist. Sabine Sánchez RN/Ground Instructor Advanced
--- NOTE | 2019-05-12 17:25 | PC.NURSE ---
Addendum entered by Lizzy Cunningham R.N. 05/12/19 17:47: Pt had home instructions Escorted by staff to waiting vehicle in stable condition. Original Note: Pt up ad shruti in room ans hallway. SpO2 97% RA Right ear remains reddened, however showing improvement. CHRISTIANE midline intact/patent. [facility] here for home instructions. Call light w.in reach.
--- NOTE | 2019-05-13 19:05 | P.DS_ITS ---
History of Present Illness History of Present Illness Date Patient Seen: 05/12/19 Time Patient Seen: 10:05 Chief complaint: Swelling, redness right ear pain Narrative: As per Dr. Shell, This is a 61-year-old female who presents with 24 hours of right ear symptoms. Yesterday afternoon she noticed tenderness on the top of the right ear and then rapidly overnight gained swelling/pain/redness. Over night she also developed a fever up to 101.2. In 2016 she had a matching left-sided ear infection that was treated at [facility], eventually with 3 weeks of IV antibiotics to clear, finally using cefepime and vancomycin after failing a course of Levaquin. There have also been chills and sweating. She shows me a picture of the infection from 2016, which looked like it had spread much further to the face around the ear than it has so far this time. There has been no infection of the neck, mouth or elsewhere on the face. She has had no trauma to the ear, no insect bite or sting etc. Discharge Providers Provider Date of admission: 05/09/19 07:58 Discharge Date: 05/12/19 Discharge provider: Joshua Mclain DO Summary Hospital Course Discharge Diagnosis: 1. Right ear auriculitis/neck cellulitis Hospital Course: Patient was started on IV antibiotics including cefepime and vancomycin which was consistent with her prior episode. She improved dramatically with initiation of IV antibiotics however steroids were also started given concern for possible polychondritis which was in the differential during her last episode. She will continue 7 more days of cefepime and vancomycin at home and continue a prolonged steroid course. I have given her 2 weeks of steroids and she should follow up with a fur finisher seamstress to see if this should be continued. She was discharged in stable condition. Status at Discharge Cognitive/behavioral status at discharge: oriented Functional status at discharge: independent ambulation Overall status at discharge: patient is back to baseline Exam Vital Signs (past 8 hours): Oxygen Delivery Method Room Air Oxygen Flow Rate 0 Narrative Exam Narrative: GENERAL APPEARANCE: Well developed, well nourished, in no acute distress. SKIN: Inspection of the skin reveals no rashes, ulcerations or petechiae. HEENT: R auricular swelling and erythema, improved from prior. With surrounding neck cellulitis which has improved. NECK: Supple and symmetric. There was no thyroid enlargement, and no tenderness, or masses were felt. CHEST: Normal AP diameter and normal contour without any kyphoscoliosis. LUNGS: Auscultation of the lungs revealed no wheezes, rhonchi, or rales. CARDIOVASCULAR: There was a regular rate and rhythm without any murmurs, gallops, rubs. Peripheral pulses were 2+ and symmetric. ABDOMEN: Soft and nontender with normal bowel sounds. No ascites was noted. MUSCULOSKELETAL: There was no tenderness or effusions noted. Muscle strength and tone were normal. EXTREMITIES: No cyanosis, clubbing or edema. NEUROLOGIC: Alert and oriented x 3. Normal affect. Gait was normal. Strength is +5/5 in the Upper Extremities and Lower Extremities Bilaterally. Sensation to touch was normal. Objective Labs Result Diagrams: 05/10/19 06:20 05/09/19 06:05 Discharge Plan Discharge Plan Patient Disposition: Home Discharge comment: You were admitted to the hospital for an infection near your right ear, termed auriculitis. It is unclear whether this represents polychondritis or simply an infection. You will be treated with IV antibiotics and steroids at home. You will receive 1 week of IV antibiotics at home, and dumont ve been given a prescription for 2 weeks of 40 mg of prednisone. Please see your primary care provider or fur finisher seamstress for further direction after these 2 weeks, and you should see either one of these providers for further steroids. Discharge Med Rec/Prescriptions Prescriptions: New cefepime in dextrose 5 % 1 gram/50 mL Piggyback 1 gm IV Q12H 39 Days Qty: 78 RF: 0 vancomycin-water inject (PEG) 2 gram/400 mL Piggyback 2,000 mg IV Q8H 39 Days Qty: 78 RF: 0 hydrocodone-acetaminophen 5-325 mg Tablet 1 tab PO Q4H PRN (Reason: Pain, Severe (7-10)) 7 Days Qty: 10 RF: 0 prednisone 20 mg Tablet 40 mg PO DAILY 14 Days Qty: 14 RF: 0 lidocaine HCl 2 % Jelly 1 applic topical PRN PRN (Reason: Pain, Mild (1-3)) 7 Days Qty: 1 RF: 0 Continued triamcinolone acetonide 0.5 % cream 1 applic TOPICAL DIRECTED RF: 0 dextroamphetamine-amphetamine 10 mg tablet 10 mg PO BID RF: 0 fluoxetine 10 mg capsule 10 mg PO DAILY RF: 0 montelukast 10 mg tablet 10 mg PO QPM RF: 0 Tirosint 150 mcg capsule 150 mcg PO DAILY RF: 0 estradiol [Estrace] 0.01 % (0.1 mg/gram) cream 0 g VAGINAL DIRECTED RF: 0 cholecalciferol (vitamin D3) [Vitamin D3] 5,000 unit Tablet 5,000 unit PO DAILY RF: 0 Probiotic 1 cap PO DAILY RF: 0 Provider Discharge Instructions Diet: Diet as Tolerated Diet comment: no restrictions Activity: No restrictions Discharges patient from system. Discharge Date/Time: 05/12/19 17:48
== END 2019-05-12 17:48 | disposition home or self-care (01) | DRG 155 ==
LOC: ED 07:11 → AC 07:59
PROVIDERS: Nurse Practitioner Family; Admitting Provider Family Medicine; Emergency Provider Emergency Medicine; Visit Provider Family Medicine
DX: H60.11 Cellulitis of right external ear (principal); L03.221 Cellulitis of neck; E06.3 Autoimmune thyroiditis; F41.9 Anxiety disorder, unspecified; Z87.891 Personal history of nicotine dependence; F90.8 Attention-deficit hyperactivity disorder, other type; M94.8X0 Other specified disorders of cartilage, multiple sites
CPT/HCPCS: 36415; 71045; 80053; 80202; 81003; 81015; 83605; 83690; 84145; 85025; 85610; 85730; 87040; 87086; 93005; 94760; 96365; 96366; 96368; 96375; 99284; J0692; J1650; J1885; J1956